=== PATIENT | female | born 2000 | race Caucasian/White ===

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

== ENCOUNTER 2018-06-12 13:43 | Emergency (ER) | payer OTHER | END 2018-06-12 16:23 | disposition home or self-care (01) | LOC: FTE 13:43 | DX: J02.0 Streptococcal pharyngitis (principal); J45.909 Unspecified asthma, uncomplicated; Z76.0 Encounter for issue of repeat prescription | CPT/HCPCS: 87880; 99283 ==